=== PATIENT | male | born 1980 | race Caucasian/White ===

== ENCOUNTER 2018-05-25 13:41 | Emergency (ER) | payer MEDICAID, MEDICARE ==
[2018-05-25] MEDS ORDERED: Acetaminophen 500 MG TAB ONE (14:52)
== END 2018-05-25 15:08 | disposition home or self-care (01) ==
LOC: ERS 13:41
DX: S16.1XXA Strain of muscle, fascia and tendon at neck level, initial encounter (principal); F31.9 Bipolar disorder, unspecified; Z79.899 Other long term (current) drug therapy; W22.03XA Walked into furniture, initial encounter
CPT/HCPCS: 99283

== ENCOUNTER 2018-08-14 12:09 | Emergency (ER) | payer MEDICARE | END 2018-08-14 12:52 | disposition home or self-care (01) | LOC: ERS 12:09 | DX: Z00.00 Encounter for general adult medical examination without abnormal findings (principal); F31.9 Bipolar disorder, unspecified | CPT/HCPCS: 99282 ==